=== PATIENT | female | born 1985 | race Two or more races ===

== ENCOUNTER 2019-05-30 02:01 | Emergency (ER) | payer SELFPAY ==
[~2019-05-30] VITALS: Ht 157.5 cm; Wt 49.9 kg
[2019-05-30 02:10] VITALS: BP 122/86
--- NOTE | 2019-05-30 02:10 | NUR ---
ED Nurse Note: brought in by ambulance michelle ra [id number] from home c/o anxiety. pt states she broke up with her significant other and is now crying. ao4 nad vss. changed into gown; attached to monitor. safety measures met. will continue to monitor.
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
[2019-05-30] MEDS ORDERED: LORazepam Inj 2mg/ml 1ml IV ONE (02:15)
--- NOTE | 2019-05-30 02:15 | NUR ---
ED Nurse Note: iv access established. blood and urine collected; sent down to lab
[2019-05-30 02:37] LABS: HEMATOCRIT 38.3 % (37.0-47.0); HEMOGLOBIN 13.3 G/DL (12.0-16.0); MEAN CORPUSCULAR VOLUME 85 FL (80-99); PLATELET COUNT 388 K/UL (150-450); RED BLOOD COUNT 4.49 M/UL (4.20-5.40); RED CELL DISTRIBUTION WIDTH 12.1 % (11.6-14.8)
[2019-05-30 02:39] LABS: APPEARANCE,URINE CLEAR; BILIRUBIN, URINE NEGATIVE (NEGATIVE); COLOR,URINE PALE YELLOW; GLUCOSE, URINE (UA) NEGATIVE (NEGATIVE); KETONES,URINE NEGATIVE (NEGATIVE); LEUKOCYTE ESTERASE ,URINE NEGATIVE (NEGATIVE); NITRITE,URINE NEGATIVE (NEGATIVE); PH,URINE 7 (4.5-8.0); PROTEIN,URINE NEGATIVE (NEGATIVE); UROBILINOGEN,URINE NORMAL MG/DL (0.0-1.0)
--- NOTE | 2019-05-30 02:40 | NUR ---
Note josé in EDM - 05/30/19 at 0243 by [facility] ED Nurse Note: brought in by ambulance lafd ra 858 from home c/o anxiety. pt states she broke up with her significant other and is now crying. ao4 nad vss. changed into gown; attached to monitor. safety measures met. will continue to monitor.
[2019-05-30 02:48] LABS: ANION GAP 10 mmol/L (5-15); BLOOD UREA NITROGEN 9 mg/dL (7-18); CARBON DIOXIDE 31 MMOL/L (21-32); CHLORIDE 105 MMOL/L (98-107); CREATININE 0.5 MG/DL (0.55-1.30); POTASSIUM 3.3 MMOL/L (3.5-5.1); SODIUM 146 MMOL/L (136-145)
[2019-05-30 03:00] VITALS: BP 121/79
[2019-05-30 03:04] LABS: ALANINE AMINOTRANSFERASE 28 U/L (12-78); ALBUMIN/GLOBULIN RATIO 1.1 (1.0-2.7); ALKALINE PHOSPHATASE 71 U/L (46-116); ASPARTATE AMINO TRANSFERASE 20 U/L (15-37); BILIRUBIN,TOTAL 0.2 MG/DL (0.2-1.0)
--- NOTE | 2019-05-30 03:17 | Diagnostic Imaging Report ---
EXAM: XR Chest, 1 View CLINICAL HISTORY: SOB TECHNIQUE: Frontal view of the chest. COMPARISON: No relevant prior studies available. FINDINGS: Lungs: Unremarkable. No consolidation. Pleural space: Unremarkable. No pneumothorax. Heart: The heart is upper normal in size. Mediastinum: Unremarkable. Bones/joints: Unremarkable. Other findings: Mild groundglass attenuation opacities are present in the bilateral lobes. IMPRESSION: Mild bilateral lower lobe groundglass attenuation. Given heart size, differential considerations include mild pulmonary vascular congestion or bilateral lower lobe airspace disease, possibly from atypical infection. Correlate clinically.
--- NOTE | 2019-05-30 04:00 | NUR ---
ED Nurse Note: patient sleeping in bed with no acute distress. vss. will continue to monitor.
[2019-05-30] MEDS ORDERED: ZITHROMAX250 MG ORAL (04:32)
[2019-05-30 05:00] VITALS: BP 119/81
--- NOTE | 2019-05-30 05:00 | NUR ---
ED Nurse Note: patient awake alert and oriented x4. ambulated with steady gait to the bathroom.
[2019-05-30 05:35] VITALS: BP 119/81
--- NOTE | 2019-05-30 05:35 | NUR ---
ER DISCHARGE NOTE: Patient is cleared to be discharged per ERMD, pt is aox4, on room air, with stable vital signs. pt was given dc and prescription instructions, pt was able to verbalize understanding, pt id band and iv site removed without complications. pt is able to ambulate with steady gait. pt took all belongings.
== END 2019-05-30 05:35 | disposition home or self-care (01) ==
LOC: EDBD 02:01 → EMR 02:25
DX: F10.129 Alcohol abuse with intoxication, unspecified (principal); J18.9 Pneumonia, unspecified organism
CPT/HCPCS: 36415; 71045; 80053; 80307; 81003; 81025; 84439; 84443; 84481; 85007; 85025; 96374; 99284; G0480